=== PATIENT | female | born 1955 | race African-American/Black ===

== ENCOUNTER 2016-06-04 11:03 | Emergency (ER) | payer MEDICARE, MEDICAID ==
--- NOTE | 2016-06-04 11:20 | ER Document Report ---
ED Medical Screen (RME) - General Stated Complaint: FEVER, CHEST PAIN Notes: Fever chills chest pain coughing up blood for two days TRAVEL OUTSIDE OF THE [place] IN LAST 30 DAYS: No - Related Data Allergies/Adverse Reactions: aspirin [Aspirin] Adverse Reaction (Intermediate, Verified 03/28/15 11:20) N&V Past Medical History - Past Medical History Cardiac Medical History: Reports: Hx Hypertension Denies: Hx Coronary Artery Disease, Hx Heart Attack Pulmonary Medical History: Reports: Hx Bronchitis, Hx Pneumonia - 2005 Denies: Hx Asthma, Hx COPD Neurological Medical History: Denies: Hx Cerebrovascular Accident, Hx Seizures Musculoskeltal Medical History: Reports Hx Arthritis - Joints Psychiatric Medical History: Reports: Hx Depression Past Surgical History: Reports: Hx Abdominal Surgery - gastric bypass 3 years ago, Hx Cardiac Catheterization - ablation, Hx Orthopedic Surgery - left knee/ shoulder. Denies: Hx Pacemaker - Immunizations Hx Diphtheria, Pertussis, Tetanus Vaccination: Yes Physical Exam - Vital signs Vitals: Temp Pulse Resp BP Pulse Ox 98.0 F 97 18 110/61 100 06/04/16 11:17 06/04/16 11:17 06/04/16 11:17 06/04/16 11:17 06/04/16 11:17 Course - Vital Signs Vital signs: Temp Pulse Resp BP Pulse Ox 98.0 F 97 18 110/61 100 06/04/16 11:17 06/04/16 11:17 06/04/16 11:17 06/04/16 11:17 06/04/16 11:17
[2016-06-04] MEDS ORDERED: IPRATROPIUM/ALBUTEROL 0.5-2.5 MG/3 ML AMPUL NEB ONE (12:30)
[2016-06-04] MEDS ORDERED: METHYLPREDNISOLONE INJ 125 MG/2 ML SDV IV ONE (12:34)
--- NOTE | 2016-06-04 12:35 | ER Document Report ---
ED Respiratory Problem - General Chief Complaint: Cough Stated Complaint: FEVER, CHEST PAIN Mode of Arrival: Ambulatory Information source: Patient Notes: Patient presents complaining of cough, fever and chills for the past 2 days. Patient states fever was 102 yesterday. Patient does complain of chest pain with coughing. Patient denies any recent travel or immobilization. Patient reports blood in her sputum. Patient does state that she was recently treated for upper respiratory symptoms by her primary doctor with azithromycin on 2016. TRAVEL OUTSIDE OF THE [place] IN LAST 30 DAYS: No - HPI Patient complains to provider of: COPD, Cough Onset: Other - 2 days Duration: Worse/persistent Quality of pain: Sharp Pain Level: 4 Context: Hx COPD, Smoker. denies: Recent immobilization, Recent surgery Chest pain/discomfort: Pain Cough: Productive Sputum amount: Small Sputum color: Red Specks At home treatment: Bronchodilators Associated symptoms: Bloody cough, Chest pain/discomfort, Cough, Fever. denies : Headache Similar symptoms previously: Yes Recently seen / treated by doctor: Yes - Related Data Allergies/Adverse Reactions: aspirin [Aspirin] Adverse Reaction (Intermediate, Verified 03/28/15 11:20) N&V Past Medical History - General Information source: Patient - Social History Smoking Status: Never Smoker Chew tobacco use (# tins/day): No Frequency of alcohol use: None Drug Abuse: None Occupation: none Lives with: Family Family History: Reviewed & Not Pertinent Patient has suicidal ideation: No Patient has homicidal ideation: No - Past Medical History Cardiac Medical History: Reports: Hx Hypertension Denies: Hx Coronary Artery Disease, Hx Heart Attack Pulmonary Medical History: Reports: Hx Bronchitis, Hx COPD, Hx Pneumonia - 2005 Denies: Hx Asthma Neurological Medical History: Denies: Hx Cerebrovascular Accident, Hx Seizures Renal/ Medical History: Denies: Hx Peritoneal Dialysis Musculoskeltal Medical History: Reports Hx Arthritis - Joints Psychiatric Medical History: Reports: Hx Depression Past Surgical History: Reports: Hx Abdominal Surgery - gastric bypass 3 years ago, Hx Cardiac Catheterization - ablation, Hx Orthopedic Surgery - left knee/ shoulder. Denies: Hx Pacemaker - Immunizations Hx Diphtheria, Pertussis, Tetanus Vaccination: Yes Hx Pneumococcal Vaccination: 12/25/12 Review of Systems - Review of Systems Constitutional: Fever, Recent illness - Upper respiratory EENT: Throat pain Cardiovascular: Chest pain - Coughing Respiratory: Cough, Hemoptysis, Sputum Gastrointestinal: Abdominal pain - With coughing. denies: Vomiting Genitourinary: No symptoms reported. denies: Dysuria Female Genitourinary: No symptoms reported Musculoskeletal: Back pain - Right back pain with cough Skin: No symptoms reported Hematologic/Lymphatic: No symptoms reported Neurological/Psychological: No symptoms reported Physical Exam - Vital signs Vitals: Temp Pulse Resp BP Pulse Ox 98.0 F 97 18 110/61 100 06/04/16 11:17 06/04/16 11:17 06/04/16 11:17 06/04/16 11:17 06/04/16 11:17 - General General appearance: Appears well, Alert In distress: None - HEENT Head: Normocephalic, Atraumatic Eyes: Normal Nasal: Normal Mouth/Lips: Normal Mucous membranes: Normal Pharynx: Normal. No: Exudate, Peritonsillar abscess, Tonsillar hypertrophy Neck: Normal, Supple. No: Lymphadenopathy, Meningismus - Respiratory Respiratory status: No respiratory distress Chest status: Pain with cough, Pain with deep breathing Breath sounds: Productive cough, Rhonchi, Wheezing - faint wheeze RLL Chest palpation: Normal - Cardiovascular Rhythm: Regular Heart sounds: S1 appreciated, S2 appreciated Murmur: No - Abdominal Inspection: Obese Distension: No distension Bowel sounds: Normal Tenderness: Tender - RUQ with cough - Back Back: Tender - Right posterior thoracic back pain with coughing - Extremities General upper extremity: Normal inspection, Normal strength General lower extremity: Normal inspection, Normal strength - Neurological Neuro grossly intact: Yes Cognition: Normal Dawna Coma Scale Eye Opening: Spontaneous [place] Coma Scale Verbal: Oriented Dawna Coma Scale Motor: Obeys Commands Dawna Coma Scale Total: 15 - Psychological Associated symptoms: Normal affect, Normal mood - Skin Skin Temperature: Warm Skin Moisture: Dry Skin Color: Normal Course - Vital Signs Vital signs: Temp Pulse Resp BP Pulse Ox 99.5 F 97 25 H 125/73 99 06/04/16 16:10 06/04/16 11:17 06/04/16 16:01 06/04/16 16:01 06/04/16 16:01 - Laboratory Result Diagrams: 06/04/16 13:40 06/04/16 13:40 Laboratory results interpreted by me: 06/04/16 06/04/16 06/04/16 13:22 13:40 13:40 WBC 14.6 H RBC 3.52 L Hgb 11.0 L Hct 34.0 L Absolute Neutrophils 10.6 H BUN 23 H Urine Urobilinogen 2.0 H Urine Ascorbic Acid 40 H Labs- Entire Visit 06/04/16 06/04/16 06/04/16 13:22 13:40 13:40 WBC 14.6 H RBC 3.52 L Hgb 11.0 L Hct 34.0 L MCV 97 MCH 31.4 MCHC 32.5 RDW 13.4 Plt Count 186 Seg Neutrophils % 72.7 Lymphocytes % 21.1 Monocytes % 5.3 Eosinophils % 0.7 Basophils % 0.2 Absolute Neutrophils 10.6 H Absolute Lymphocytes 3.1 Absolute Monocytes 0.8 Absolute Eosinophils 0.1 Absolute Basophils 0.0 Sodium 141.4 Potassium 3.6 Chloride 107 Carbon Dioxide 24 Anion Gap 10 BUN 23 H Creatinine 0.95 Est GFR ( Amer) > 60 Est GFR (Non-Af Amer) > 60 Glucose 88 Calcium 9.0 Magnesium 2.0 Total Bilirubin 0.6 Direct Bilirubin 0.0 AST 24 ALT 29 Alkaline Phosphatase 71 Creatine Kinase 48 CK-MB (CK-2) Troponin I Total Protein 6.5 Albumin 3.5 Lipase 31.4 Urine Color YELLOW Urine Appearance CLEAR Urine pH 5.0 Ur Specific [place] 1.016 Urine Protein NEGATIVE Urine Glucose (UA) NEGATIVE Urine Ketones NEGATIVE Urine Blood NEGATIVE Urine Nitrite NEGATIVE Urine Bilirubin NEGATIVE Urine Urobilinogen 2.0 H Ur Leukocyte Esterase NEGATIVE Urine WBC (Auto) 2 Urine RBC (Auto) 2 Squamous Epi Cells Auto 1 Urine Ascorbic Acid 40 H 06/04/16 13:40 WBC RBC Hgb Hct MCV MCH MCHC RDW Plt Count Seg Neutrophils % Lymphocytes % Monocytes % Eosinophils % Basophils % Absolute Neutrophils Absolute Lymphocytes Absolute Monocytes Absolute Eosinophils Absolute Basophils Sodium Potassium Chloride Carbon Dioxide Anion Gap BUN Creatinine Est GFR ( Amer) Est GFR (Non-Af Amer) Glucose Calcium Magnesium Total Bilirubin Direct Bilirubin AST ALT Alkaline Phosphatase Creatine Kinase CK-MB (CK-2) < 0.22 Troponin I < 0.012 Total Protein Albumin Lipase Urine Color Urine Appearance Urine pH Ur Specific [place] Urine Protein Urine Glucose (UA) Urine Ketones Urine Blood Urine Nitrite Urine Bilirubin Urine Urobilinogen Ur Leukocyte Esterase Urine WBC (Auto) Urine RBC (Auto) Squamous Epi Cells Auto Urine Ascorbic Acid - Diagnostic Test Radiology reviewed: Image reviewed, Reports reviewed Discharge - Discharge Clinical Impression: Pneumonia Qualifiers: Pneumonia type: due to unspecified organism Laterality: left Lung location: lower lobe of lung Qualified Code(s): J18.1 - Lobar pneumonia, unspecified organism Condition: Stable Disposition: HOME, SELF-CARE Instructions: Stop Smoking ([facility]) Additional Instructions: Return immediately for any new or worsening symptoms, continued fever, worsening cough, shortness of breath, or any new symptoms Followup with your primary care provider on Monday morning for recheck PNEUMONIA: Your examination indicates that you have pneumonia. This is an infection of the lung tissue, usually caused by bacteria or a virus. Symptoms include cough, fever, shaking chills, chest pain, shortness of breath, and coughing up bloody sputum. Treatment for bacterial pneumonia includes rest, antibiotics for 10 to 14 days, increasing your clear liquid intake, a cool mist humidifier at your bedside, and fever medication. Often, a repeat chest X-ray is performed in a few weeks--even if you feel better--to ascertain whether the infection has completely resolved and no underlying lung problem is present. You should call the physician if you develop persistent vomiting, high fever that does not respond to fever medication, increasing shortness of breath , confusion, or lethargy. Also, failure to improve within two to three days is an indication for re-examination. ANTIBIOTIC THERAPY: You have been given an antibiotic prescription. It's important that you take all the medication, unless instructed otherwise by your physician. Failure to complete the entire course can result in relapse of your condition. Common side effects of antibiotics include nausea, intestinal cramping, or diarrhea. Women may develop vaginal yeast infections, and babies can get yeast (thrush) in the mouth following the use of antibiotics. Contact your physician if you develop significant side effects from this medication. Allergy to this antibiotic can result in hives, wheezing, faintness, or itching. If symptoms of allergy occur, stop the medication and call the doctor. LEVOFLOXACIN: You have been given an antibacterial agent, levofloxacin (Levaquin). This medicine is not related to the penicillins, sulfas, cephalosporins, or tetracyclines. It is often given to patients who are allergic to these drugs. It has been chosen for you either because other drugs are not appropriate, or because of the nature of your problem. Levaquin should not be taken with antacids, as these can decrease its effectiveness. It can be taken without regard to meals. LEVAQUIN SHOULD NOT BE TAKEN BY CHILDREN, NURSING WOMEN, OR WOMEN. Although Levaquin is usually well-tolerated, common side effects can include nausea and diarrhea. Contact your doctor if you experience any unusual symptoms while on this medication, such as joint pain or swelling, shortness of breath, wheezing, faintness, or hives. USE OF ACETAMINOPHEN (Tylenol): Acetaminophen may be taken for pain relief or fever control. It's much safer than aspirin, offering a wider range of "safe" dosages. It is safe during . Some brand names are Tylenol, Panadol, Datril, Anacin 3, Tempra, and Liquiprin. Acetaminophen can be repeated every four hours. The following are maximum recommended dosages: WEIGHT Dose Drops Elixir Chewable( 80mg) (LBS.) drprs=droppers tsp=teaspoon >89 pounds or adults 650 mg to 900 mg Acetaminophen can be repeated every four hours. Maximum dose not to exceed 4000 mg a day. These maximum recommended dosages are slightly higher than the dosages written on the product container, but these dosages are very safe and below the toxic dosage for acetaminophen. FOLLOW-UP CARE: If you have been referred to a physician for follow-up care, call the physician s office for an appointment as you were instructed or within the next two days. If you experience worsening or a significant change in your symptoms, notify the physician immediately or return to the Emergency Department at any time for re-evaluation. Prescriptions: Ipratropium/Albuterol Sulfate [Combivent Respimat Inhal [place]] 1 inh IH Q6 PRN # 1 aer.w.adap PRN Reason: Levofloxacin [Levaquin 750 mg Tablet] 750 mg PO DAILY #5 tablet Referrals: DIEGO DASH MD [Primary Care Provider] - 06/06/16
[2016-06-04 13:43] LABS: APPEARANCE,URINE CLEAR; BILIRUBIN,URINE NEGATIVE (NEGATIVE); GLUCOSE, URINE NEGATIVE (NEGATIVE); KETONES,URINE NEGATIVE (NEGATIVE); LEUKOCYTE ESTERASE,URINE NEGATIVE (NEGATIVE); NITRITE,URINE NEGATIVE (NEGATIVE); PROTEIN,URINE NEGATIVE (NEGATIVE); URINE SPECIFIC GRAVITY 1.016
[2016-06-04 14:19] LABS: ABSOLUTE EOSINOPHILS # (AUTO) 0.1 10^3/uL (0.0-0.6); ABSOLUTE LYMPHOCYTES (AUTO) 3.1 10^3/uL (0.5-4.7); ABSOLUTE MONOCYTES (AUTO) 0.8 10^3/uL (0.1-1.4); ABSOLUTE NEUT (AUTO) 10.6 10^3/uL (1.7-8.2); BASOPHILS % (AUTO) 0.2 % (0-2); EOSINOPHILS % (AUTO) 0.7 % (0-6); LYMPHOCYTES % (AUTO) 21.1 % (13-45); MEAN CORPUSCULAR HEMOGLOBIN 31.4 pg (27.0-33.4); MEAN CORPUSCULAR HGB CONC 32.5 g/dL (32.0-36.0); MEAN CORPUSCULAR VOLUME 97 fl (80-97); MONOCYTES % (AUTO) 5.3 % (3-13); RED BLOOD COUNT 3.52 10^6/uL (3.72-5.28); RED CELL DISTRIBUTION WIDTH 13.4 % (11.5-14.0); SEGMENTED NEUTROPHILS % (AUTO) 72.7 % (42-78); WHITE BLOOD COUNT 14.6 10^3/uL (4.0-10.5)
[2016-06-04 14:31] LABS: ALANINE AMINOTRANSFERASE 29 U/L (9-52); ALBUMIN 3.5 g/dL (3.5-5.0); ALKALINE PHOSPHATASE 71 U/L (38-126); ANION GAP 10 (5-19); ASPARTATE AMINO TRANSFERASE 24 U/L (14-36); BILIRUBIN,TOTAL 0.6 mg/dL (0.2-1.3); BLOOD UREA NITROGEN 23 mg/dL (7-20); CARBON DIOXIDE 24 mmol/L (22-30); CHLORIDE 107 mmol/L (98-107); CREATINE KINASE 48 U/L (30-135); CREATININE RESULT 0.95 mg/dL (0.52-1.25); GLUCOSE 88 mg/dL (75-110); LIPASE 31.4 U/L (23-300); POTASSIUM 3.6 mmol/L (3.6-5.0); SODIUM 141.4 mmol/L (137-145); TOTAL PROTEIN 6.5 g/dL (6.3-8.2)
[2016-06-04] MEDS ORDERED: LEVOFLOXACIN RTU 750 MG/D5W 150 ML IV ONE (14:43)
[2016-06-04 14:50] LABS: CREATINE KINASE MB < 0.22 ng/mL (<4.55); TROPONIN I < 0.012 ng/mL
[2016-06-04] MEDS ORDERED: LEVOFLOXACIN 750 MG TABLET PO ONE (15:30)
[2016-06-04 16:10] VITALS: BP 125/73
[2016-06-04] MEDS ORDERED: ACETAMINOPHEN 325 MG TABLET PO ONE (16:13)
--- NOTE | 2016-06-05 10:05 | EKG REPORT ---
SEVERITY:- NORMAL ECG - SINUS RHYTHM : Confirmed by: Dafne Guillen MD 05-Jun-2016 10:04:51
== END 2016-06-04 16:20 | disposition home or self-care (01) ==
LOC: ER 11:03
DX: J18.1 Lobar pneumonia, unspecified organism (principal); R50.9 Fever, unspecified; R07.9 Chest pain, unspecified; I10 Essential (primary) hypertension; Z98.84 Bariatric surgery status; Z88.6 Allergy status to analgesic agent
CPT/HCPCS: 93005; 94640; 99284; 96374; 36415; 87040; 87070; 87086; 87205; 82553; 82550; 83690; 83735; 85025; 80053; 81001; 84484; 71020; 93010; A9270 ×3; J2930; J7620

== ENCOUNTER → 2016-06-08 | Outpatient (CLI) | payer MEDICARE, MEDICAID | LOC: OD 15:11 | PROVIDERS: ATTEND Internal Medicine | DX: J18.9 Pneumonia, unspecified organism (principal) | CPT/HCPCS: 71020 ==

== ENCOUNTER 2016-06-17 14:28 | Observation (INO) | payer MEDICARE, MEDICAID ==
[2016-06-17 15:41] LABS: HEMATOCRIT 33.3 % (36.0-47.0); HEMOGLOBIN 11.2 g/dL (12.0-15.5); HGB HCT DIFFERENCE 0.3; MEAN CORPUSCULAR HEMOGLOBIN 31.8 pg (27.0-33.4); MEAN CORPUSCULAR HGB CONC 33.7 g/dL (32.0-36.0); MEAN CORPUSCULAR VOLUME 94 fl (80-97); RED BLOOD COUNT 3.53 10^6/uL (3.72-5.28); RED CELL DISTRIBUTION WIDTH 13.4 % (11.5-14.0); WHITE BLOOD COUNT 5.1 10^3/uL (4.0-10.5)
[2016-06-17] MEDS ORDERED: LEVOFLOXACIN 750 MG/D5W RTU 750 MG/150 ML RTUPB IV ONE (16:00)
[2016-06-17] MEDS ORDERED: CEFTRIAXONE 1 GM/D5W RTU 1 GM/50 ML RTUPB IV ONE (16:00)
[2016-06-17 16:09] LABS: ALANINE AMINOTRANSFERASE 28 U/L (9-52); ALBUMIN 3.5 g/dL (3.5-5.0); ALKALINE PHOSPHATASE 75 U/L (38-126); ANION GAP 10 (5-19); ASPARTATE AMINO TRANSFERASE 21 U/L (14-36); BILIRUBIN,TOTAL 0.6 mg/dL (0.2-1.3); BLOOD UREA NITROGEN 14 mg/dL (7-20); CALCIUM 9.2 mg/dL (8.4-10.2); CARBON DIOXIDE 25 mmol/L (22-30); CHLORIDE 112 mmol/L (98-107); CREATININE RESULT 0.82 mg/dL (0.52-1.25); GLUCOSE 112 mg/dL (75-110); POTASSIUM 3.2 mmol/L (3.6-5.0); SODIUM 147.2 mmol/L (137-145); TOTAL PROTEIN 6.9 g/dL (6.3-8.2)
[2016-06-17] MEDS ORDERED: INFLUENZA ADLT QUAD (36MOS+) 2016-17 VAC 0.5 ML SYR IM PRN (16:54)
[2016-06-17] MEDS ORDERED: POTASSIUM CHLORIDE 10 MEQ TABLET.SA PO ONE (18:07)
--- NOTE | 2016-06-17 19:59 | EKG REPORT ---
SEVERITY:- OTHERWISE NORMAL ECG - SINUS TACHYCARDIA : Confirmed by: Dafne Guillen MD 17-Jun-2016 19:58:25
--- NOTE | 2016-06-17 20:42 | PDOC H&P ---
History of Present Illness Admission Date/PCP: 06/17/16 14:28 DIEGO DASH, History of Present Illness: GIULIANO HERMOSILLO is a 60 year old female, she came to the office today with complaint of respiratory symptoms, cough, shortness of breath, wheezing. She has been sick for the last 3-4 weeks and she was treated outpatient with antibiotic, bronchodilators, despite all these, she continues to have symptoms, coughing, shortness of breath. She came to the office today requesting for hospital admission because she is not getting any better At home. CT chest without contrast was done it showed minimal dependent subsegmental atelectasis and also scarring. There is minimal patchy airspace disease with seen the left upper lobe compatible with resolving pneumonia. There is no new airspace disease, pneumothorax or there is stable calcified granuloma within the left lower lobe Past Medical History Cardiac Medical History: Reports: Hypertension Pulmonary Medical History: Reports: Bronchitis, Chronic Obstructive Pulmonary Disease (COPD), Pneumonia - 2005 Neurological Medical History: Denies: Seizures Musculoskeltal Medical History: Reports: Arthritis - Joints Psychiatric Medical History: Reports: Depression Hematology: Reports: Anemia - As young adult Past Surgical History Past Surgical History: Reports: Cardiac Catheterization - ablation, Orthopedic Surgery - left knee/shoulder Social History Smoking Status: Former Smoker Frequency of Alcohol Use: Rare Hx Recreational Drug Use: No Family History Family History: Reviewed & Not Pertinent Parental Family History Reviewed: Yes Children Family History Reviewed: Yes Sibling(s) Family History Reviewed.: Yes Medication/Allergy Home Medications: Albuterol Sulfate [Proair HFA] 2 puff IH Q4HP PRN 06/17/16 Alprazolam 1 mg PO Q12 06/17/16 Citalopram Hydrobromide [Celexa 40 mg Tablet] 40 mg PO DAILY 06/17/16 Cyanocobalamin (Vitamin B-12) [Vitamin B-12 Inj 1000 Mcg/1 ml Vial] 1,000 mcg IM .MONTHLY 06/17/16 Esomeprazole Magnesium [Nexium] 40 mg PO DAILY 06/17/16 Fluticasone/Salmeterol [Advair 250-50 Diskus 14 Dose/Diskus] 1 inh IH Q12 Furosemide [Lasix 40 mg Tablet] 40 mg PO QAM 06/17/16 Ipratropium/Albuterol Sulfate [Combivent Respimat 4 gm Mdi] 1 puff IH QID Levalbuterol HCl [Xopenex Neb 0.63 mg/3 ml Ampul] 0.63 mg NEB [id number] PRN Levofloxacin [Levaquin 750 mg Tablet] 750 mg PO DAILY 06/17/16 Lisdexamfetamine Dimesylate [Vyvanse] 40 mg PO Q12 06/17/16 Metoprolol Succinate [Toprol XL 100 mg Tablet] 100 mg PO DAILY 06/17/16 Oxycodone HCl [Oxycodone HCl ER] 15 mg PO Q6 06/17/16 Piroxicam [Feldene] 20 mg PO DAILY 06/17/16 Valsartan/Hydrochlorothiazide [Valsartan-Hctz 320-25 mg Tab] 1 each PO DAILY Allergies/Adverse Reactions: aspirin [Aspirin] Adverse Reaction (Intermediate, Verified 03/28/15 11:20) N&V Review of Systems Constitutional: PRESENT: chills, headache(s), night sweats Eyes: ABSENT: as per HPI, visual disturbances, other Ears: ABSENT: as per HPI, hearing changes, other Nose, Mouth, and Throat: ABSENT: as per HPI, headache(s), mouth pain, sore throat, vertigo, other Breasts: ABSENT: as per HPI, other Cardiovascular: PRESENT: chest pain Respiratory: PRESENT: cough, dyspnea, sputum Gastrointestinal: ABSENT: as per HPI, abdominal pain, bloating, coffee ground emesis, constipation, diarrhea, dysphagia, heartburn, hematemesis, hematochezia , melena, nausea, vomiting, other Genitourinary: ABSENT: as per HPI, difficulty urinating, dysuria, hematuria, nocturia, other Integumentary: ABSENT: as per HPI, diaphoresis, erythema, lesions, pruritus, rash, wounds, other Neurological: ABSENT: as per HPI, abnormal gait, abnormal movements, abnormal speech, confusion, convulsions, dizziness, focal weakness, frequent falls, lack of coordination, memory loss, numbness, paresthesias, restless legs, syncope, tingling, tremor(s), vertigo, weakness, other Psychiatric: ABSENT: as per HPI, anxiety, depression, hallucinations, homidical ideation, suicidal ideation, other Endocrine: ABSENT: as per HPI, cold intolerance, flushing, heat intolerance, menstrual abnormalities, polydipsia, polyphagia, polyuria, other Physical Exam Vital Signs: Temp Pulse Resp BP Pulse Ox 98.4 F 102 H 17 135/84 H 99 06/17/16 19:24 06/17/16 19:24 06/17/16 19:24 06/17/16 19:24 06/17/16 19:24 Intake & Output 06/16/16 06/17/16 06/18/16 06:59 06:59 06:59 Weight 114.1 kg General appearance: PRESENT: no acute distress, well-developed, well-nourished Head exam: PRESENT: atraumatic, normocephalic Eye exam: PRESENT: conjunctiva pink, EOMI, PERRLA Ear exam: PRESENT: normal external ear exam Mouth exam: PRESENT: moist, tongue midline Neck exam: PRESENT: full ROM Respiratory exam: PRESENT: rhonchi, wheezes Cardiovascular exam: PRESENT: RRR, +S1, +S2 GI/Abdominal exam: PRESENT: normal bowel sounds, soft Rectal exam: PRESENT: deferred Neurological exam: PRESENT: alert, awake, oriented to person, oriented to place , oriented to time, oriented to situation, CN II-XII grossly intact. ABSENT: motor sensory deficit Psychiatric exam: PRESENT: appropriate affect, normal mood Skin exam: PRESENT: dry, intact, warm. ABSENT: cyanosis, rash Results Laboratory Results: 06/17/16 15:30 06/17/16 15:30 06/17/16 06/17/16 15:30 15:30 WBC 5.1 RBC 3.53 L Hgb 11.2 L Hct 33.3 L MCV 94 MCH 31.8 MCHC 33.7 RDW 13.4 Plt Count 239 Sodium 147.2 H Potassium 3.2 L Chloride 112 H Carbon Dioxide 25 Anion Gap 10 BUN 14 Creatinine 0.82 Est GFR ( Amer) > 60 Est GFR (Non-Af Amer) > 60 Glucose 112 H Calcium 9.2 Total Bilirubin 0.6 AST 21 ALT 28 Alkaline Phosphatase 75 Total Protein 6.9 Albumin 3.5 Impressions: Chest CT 06/17/16 00:00 IMPRESSION: SUBTLE PATCHY LEFT UPPER LOBE AIRSPACE DISEASE COMPATIBLE WITH RESOLVING PNEUMONIA SEEN ON PRIOR CHEST RADIOGRAPH. NO ADDITIONAL ACUTE OR SIGNIFICANT CHANGE COMPARED TO PRIOR CT FROM 08/13/2014. Assessment & Plan - Diagnosis (1) Left upper lobe pneumonia Qualifiers: Pneumonia type: due to unspecified organism Qualified Code(s): J18.1 - Lobar pneumonia, unspecified organism Is this a current diagnosis for this admission?: YesPlan: Patient is admitted into the hospital because of failed outpatient treatment, she will be treated with IV antibiotic.
[2016-06-17] MEDS ORDERED: ENOXAPARIN SODIUM INJ 40 MG/0.4 ML DISP.SYRIN SUBCUT ONE (21:00)
[2016-06-17] MEDS ORDERED: ALBUTEROL SULFATE HFA (90 MCG/PUFF) 8 GM MDI (1 MDI/ER DISP) IH PRN (21:23)
[2016-06-17] MEDS ORDERED: (PENDING PHARMACY ID) (Valsartan/Hydrochlorothiazide [Valsartan-Hctz 320-25 Mg Tab] 1 EACH PO SCH (21:30)
[2016-06-17] MEDS ORDERED: (PENDING PHARMACY ID) (Citalopram Hydrobromide [Celexa 40 Mg Tablet] 40 MG) PO SCH (21:30)
[2016-06-17] MEDS ORDERED: CYANOCOBALAMIN (VITAMIN B-12) INJ 1000 MCG/1 ML VIAL IM SCH (21:30)
[2016-06-17] MEDS ORDERED: (PENDING PHARMACY ID) (Oxycodone Hcl [Oxycodone Hcl Er] 15 MG) PO SCH (21:30)
[2016-06-17 21:39] LABS: APPEARANCE,URINE CLEAR; GLUCOSE, URINE NEGATIVE (NEGATIVE)
[2016-06-17 21:40] LABS: BILIRUBIN,URINE NEGATIVE (NEGATIVE); KETONES,URINE NEGATIVE (NEGATIVE); PROTEIN,URINE NEGATIVE (NEGATIVE); URINE SPECIFIC GRAVITY 1.013; UROBILINOGEN,URINE NEGATIVE mg/dL (<2.0)
[2016-06-17 21:41] LABS: LEUKOCYTE ESTERASE,URINE NEGATIVE (NEGATIVE); NITRITE,URINE NEGATIVE (NEGATIVE)
[2016-06-17 21:46] LABS: HEMATOCRIT 30.2 % (36.0-47.0); HEMOGLOBIN 10.2 g/dL (12.0-15.5); HGB HCT DIFFERENCE 0.4; MEAN CORPUSCULAR HEMOGLOBIN 31.9 pg (27.0-33.4); MEAN CORPUSCULAR HGB CONC 33.9 g/dL (32.0-36.0); MEAN CORPUSCULAR VOLUME 94 fl (80-97); RED BLOOD COUNT 3.21 10^6/uL (3.72-5.28); RED CELL DISTRIBUTION WIDTH 13.6 % (11.5-14.0); WHITE BLOOD COUNT 5.6 10^3/uL (4.0-10.5)
[2016-06-17 21:58] LABS: CREATININE RESULT 0.87 mg/dL (0.52-1.25)
[2016-06-17] MEDS ORDERED: OXYCODONE HCL SR 10 MG TABLET PO PRN (21:58)
[2016-06-17 21:59] LABS: PROTHROMBIN TIME 13.4 SEC (11.4-15.4)
[2016-06-17 22:00] LABS: PARTIAL THROMBOPLASTIN TIME 29.3 SEC (23.5-35.8)
[2016-06-17] MEDS: CEFTRIAXONE 1 GM/D5W RTU 1 GM/50 ML RTUPB IV SCH (22:00)
[2016-06-17] MEDS ORDERED: (PENDING PHARMACY ID) (Alprazolam [Alprazolam] 1 MG) PO SCH (22:00)
[2016-06-17] MEDS: ALPRAZOLAM 0.5 MG TABLET PO SCH (22:12)
[2016-06-17] MEDS ORDERED: HYDROCHLOROTHIAZIDE 25 MG TABLET PO ONE (23:00)
[2016-06-17] MEDS ORDERED: CITALOPRAM HYDROBROMIDE 20 MG TABLET PO ONE (23:00)
[2016-06-17] MEDS ORDERED: LANSOPRAZOLE 30 MG TAB.RAP.DR PO ONE (23:00)
[2016-06-17] MEDS ORDERED: VALSARTAN 160 MG TABLET PO ONE (23:00)
[2016-06-17] MEDS: FLUTICASONE/SALMETEROL DISKUS 250-50 MCG/DOSE IH SCH (23:48)
[2016-06-17] MEDS: IPRATROPIUM/ALBUTEROL 120 PUFF/4 GM MDI IH SCH (23:49)
[2016-06-17] MEDS: LEVOFLOXACIN 750 MG/D5W RTU 750 MG/150 ML RTUPB IV SCH (23:50)
[2016-06-18] MEDS: LEVALBUTEROL HCL NEB 0.63 MG/3 ML AMPUL NEB PRN ×2 (00:34→12:57)
[2016-06-18] MEDS: ENOXAPARIN SODIUM INJ 40 MG/0.4 ML DISP.SYRIN SUBCUT SCH (08:05)
[2016-06-18] MEDS: FLUTICASONE/SALMETEROL DISKUS 250-50 MCG/DOSE IH SCH ×2 (09:12→21:20)
[2016-06-18] MEDS: IPRATROPIUM/ALBUTEROL 120 PUFF/4 GM MDI IH SCH ×4 (09:12→21:20)
[2016-06-18] MEDS: LANSOPRAZOLE 30 MG TAB.RAP.DR PO SCH (09:21)
[2016-06-18] MEDS: HYDROCHLOROTHIAZIDE 25 MG TABLET PO SCH (09:23)
[2016-06-18] MEDS: ALPRAZOLAM 0.5 MG TABLET PO SCH (09:24)
[2016-06-18] MEDS: VALSARTAN 160 MG TABLET PO SCH (09:24)
[2016-06-18] MEDS ORDERED: CITALOPRAM HYDROBROMIDE 20 MG TABLET PO SCH (10:00)
--- NOTE | 2016-06-18 10:11 | PDOC PROGRESS REPORT ---
Subjective Progress Note for:: 06/18/16 Subjective:: Patient is doing very well patient's denied any chest pain no shortness of the breath still complained of persistent complaint of cough. Patient was admitted because of the failure out patient's pneumonia therapy Physical Exam Vital Signs: Temp Pulse Resp BP Pulse Ox 98.2 F 74 15 113/65 100 06/18/16 03:04 06/18/16 07:00 06/18/16 03:04 06/18/16 03:04 06/18/16 03:04 Intake & Output 06/17/16 06/18/16 06/19/16 06:59 06:59 06:59 Intake Total 630 Output Total 375 Balance 255 Weight 114.1 kg General appearance: PRESENT: no acute distress, well-developed, well-nourished Head exam: PRESENT: atraumatic, normocephalic Eye exam: PRESENT: conjunctiva pink, EOMI, PERRLA. ABSENT: scleral icterus Ear exam: PRESENT: normal external ear exam Mouth exam: PRESENT: moist, tongue midline Neck exam: PRESENT: full ROM. ABSENT: carotid bruit, JVD, lymphadenopathy, thyromegaly Cardiovascular exam: PRESENT: RRR. ABSENT: diastolic murmur, rubs, systolic murmur Pulses: PRESENT: normal dorsalis pedis pul, +2 pedal pulses bilateral Vascular exam: PRESENT: normal capillary refill GI/Abdominal exam: PRESENT: normal bowel sounds, soft. ABSENT: distended, guarding, mass, organolmegaly, rebound, tenderness Rectal exam: PRESENT: deferred Neurological exam: PRESENT: alert, awake, oriented to person, oriented to place , oriented to time, oriented to situation, CN II-XII grossly intact. ABSENT: motor sensory deficit Psychiatric exam: PRESENT: appropriate affect, normal mood. ABSENT: homicidal ideation, suicidal ideation Skin exam: PRESENT: dry, intact, warm. ABSENT: cyanosis, rash Results Laboratory Results: 06/17/16 21:40 06/17/16 21:40 06/17/16 06/17/16 06/17/16 15:30 15:30 20:40 WBC 5.1 RBC 3.53 L Hgb 11.2 L Hct 33.3 L MCV 94 MCH 31.8 MCHC 33.7 RDW 13.4 Plt Count 239 Sodium 147.2 H Potassium 3.2 L Chloride 112 H Carbon Dioxide 25 Anion Gap 10 BUN 14 Creatinine 0.82 Est GFR ( Amer) > 60 Est GFR (Non-Af Amer) > 60 Glucose 112 H Calcium 9.2 Total Bilirubin 0.6 AST 21 ALT 28 Alkaline Phosphatase 75 Total Protein 6.9 Albumin 3.5 Urine Color YELLOW Urine Appearance CLEAR Urine pH 7.0 Ur Specific [place] 1.013 Urine Protein NEGATIVE Urine Glucose (UA) NEGATIVE Urine Ketones NEGATIVE Urine Blood NEGATIVE Urine Nitrite NEGATIVE Ur Leukocyte Esterase NEGATIVE Urine WBC (Auto) 0 Urine RBC (Auto) 1 06/17/16 06/17/16 21:40 21:40 WBC 5.6 RBC 3.21 L Hgb 10.2 L Hct 30.2 L MCV 94 MCH 31.9 MCHC 33.9 RDW 13.6 Plt Count 214 Sodium Potassium Chloride Carbon Dioxide Anion Gap BUN Creatinine 0.87 Est GFR ( Amer) > 60 Est GFR (Non-Af Amer) > 60 Glucose Calcium Total Bilirubin AST ALT Alkaline Phosphatase Total Protein Albumin Urine Color Urine Appearance Urine pH Ur Specific [place] Urine Protein Urine Glucose (UA) Urine Ketones Urine Blood Urine Nitrite Ur Leukocyte Esterase Urine WBC (Auto) Urine RBC (Auto) Impressions: Chest CT 06/17/16 00:00 IMPRESSION: SUBTLE PATCHY LEFT UPPER LOBE AIRSPACE DISEASE COMPATIBLE WITH RESOLVING PNEUMONIA SEEN ON PRIOR CHEST RADIOGRAPH. NO ADDITIONAL ACUTE OR SIGNIFICANT CHANGE COMPARED TO PRIOR CT FROM 08/13/2014. Assessment & Plan - Diagnosis (1) Left upper lobe pneumonia Qualifiers: Pneumonia type: due to unspecified organism Qualified Code(s): J18.1 - Lobar pneumonia, unspecified organism Is this a current diagnosis for this admission?: YesPlan: the current IV antibiotic (2) Benign essential HTN Is this a current diagnosis for this admission?: YesPlan: There is some confusion about the blood pressure medication home will check with the pharmacy (3) Chronic obstructive pulmonary disease Is this a current diagnosis for this admission?: YesPlan: Stable (4) Hepatitis C Qualifiers: Viral hepatitis chronicity: unspecified Is this a current diagnosis for this admission?: YesPlan: Stable (5) Low back strain Qualifiers: Encounter type: initial encounter Qualified Code(s): S39.012A - Strain of muscle, fascia and tendon of lower back, initial encounter Is this a current diagnosis for this admission?: YesPlan: necessary pain medication - Time Time Spent with patient: 15-24 minutes Medications reviewed and adjusted accordingly: Yes Anticipated discharge: Home - Inpatient Certification Medical Necessity: Failure to Improve With Outpatient Therapy, Need for IV Antibiotics Post Hospital Care: D/C [employer] Documentation - Plan Summary Plan Summary: Continues IV antibiotic
[2016-06-18] MEDS ORDERED: AMITRIPTYLINE HCL 50 MG TABLET PO PRN (15:45)
[2016-06-18] MEDS ORDERED: CYCLOBENZAPRINE HCL 10 MG TABLET PO PRN (15:45)
[2016-06-18] MEDS ORDERED: LEVOFLOXACIN 750 MG/D5W RTU 750 MG/150 ML RTUPB IV SCH (19:00)
[2016-06-18] MEDS: GABAPENTIN 300 MG CAPSULE PO SCH (21:19)
[2016-06-18] MEDS: CEFTRIAXONE 1 GM/D5W RTU 1 GM/50 ML RTUPB IV SCH (21:19)
[2016-06-18] MEDS: TOPIRAMATE 100 MG TABLET PO SCH (21:20)
[2016-06-18] MEDS: OXYCODONE-ACETAMINOPHEN 5-325 MG TABLET PO PRN (22:25)
[2016-06-18] MEDS: LEVOFLOXACIN 750 MG/D5W RTU 750 MG/150 ML RTUPB IV SCH (22:27)
[2016-06-18] MEDS: OXYCODONE HCL IR 5 MG TABLET PO PRN (22:27)
[2016-06-19] MEDS: TOPIRAMATE 100 MG TABLET PO SCH ×2 (06:03→13:55)
[2016-06-19] MEDS: GABAPENTIN 300 MG CAPSULE PO SCH ×2 (06:04→13:55)
[2016-06-19 07:39] LABS: ABSOLUTE EOSINOPHILS # (AUTO) 0.2 10^3/uL (0.0-0.6); ABSOLUTE LYMPHOCYTES (AUTO) 2.5 10^3/uL (0.5-4.7); ABSOLUTE MONOCYTES (AUTO) 0.5 10^3/uL (0.1-1.4); ABSOLUTE NEUT (AUTO) 1.5 10^3/uL (1.7-8.2); BASOPHILS % (AUTO) 0.9 % (0-2); EOSINOPHILS % (AUTO) 4.1 % (0-6); HEMATOCRIT 32.5 % (36.0-47.0); HGB HCT DIFFERENCE 0.5; LYMPHOCYTES % (AUTO) 54.1 % (13-45); MEAN CORPUSCULAR HEMOGLOBIN 31.7 pg (27.0-33.4); MEAN CORPUSCULAR HGB CONC 33.9 g/dL (32.0-36.0); MEAN CORPUSCULAR VOLUME 93 fl (80-97); MONOCYTES % (AUTO) 9.9 % (3-13); RED BLOOD COUNT 3.48 10^6/uL (3.72-5.28); RED CELL DISTRIBUTION WIDTH 13.5 % (11.5-14.0); WHITE BLOOD COUNT 4.7 10^3/uL (4.0-10.5)
[2016-06-19] MEDS: ENOXAPARIN SODIUM INJ 40 MG/0.4 ML DISP.SYRIN SUBCUT SCH (07:51)
[2016-06-19 07:54] LABS: ANION GAP 9 (5-19); BLOOD UREA NITROGEN 16 mg/dL (7-20); CALCIUM 9.5 mg/dL (8.4-10.2); CARBON DIOXIDE 24 mmol/L (22-30); CHLORIDE 111 mmol/L (98-107); CREATININE RESULT 0.92 mg/dL (0.52-1.25); GLUCOSE 92 mg/dL (75-110); POTASSIUM 4.2 mmol/L (3.6-5.0)
[2016-06-19] MEDS: VALSARTAN 160 MG TABLET PO SCH (09:56)
[2016-06-19] MEDS: METOPROLOL SUCCINATE 50 MG TAB.SR.24H PO SCH (09:56)
[2016-06-19] MEDS: LANSOPRAZOLE 30 MG TAB.RAP.DR PO SCH (09:56)
[2016-06-19] MEDS: ALPRAZOLAM 0.5 MG TABLET PO SCH (09:56)
[2016-06-19] MEDS: FLUTICASONE/SALMETEROL DISKUS 250-50 MCG/DOSE IH SCH (09:57)
[2016-06-19] MEDS: HYDROCHLOROTHIAZIDE 25 MG TABLET PO SCH (09:57)
[2016-06-19] MEDS: IPRATROPIUM/ALBUTEROL 120 PUFF/4 GM MDI IH SCH ×3 (09:57→18:47)
[2016-06-19] MEDS ORDERED: DIAZEPAM 2 MG TABLET PO SCH (10:00)
[2016-06-19] MEDS ORDERED: ALBUTEROL SULFATE HFA (90 MCG/PUFF) 200 PUFF/8.5 GM MDI IH PRN (11:01)
[2016-06-19] MEDS: OXYCODONE-ACETAMINOPHEN 5-325 MG TABLET PO PRN (12:13)
[2016-06-19] MEDS: OXYCODONE HCL IR 5 MG TABLET PO PRN (12:14)
--- NOTE | 2016-06-19 14:03 | PDOC PROGRESS REPORT ---
Subjective Progress Note for:: 06/19/16 Subjective:: And is feeling much better denied any chest pain no shortness of the breath to have on and off cough that no other events happen overnight Physical Exam Vital Signs: Temp Pulse Resp BP Pulse Ox 97.7 F 69 20 133/79 H 99 06/19/16 12:04 06/19/16 12:04 06/19/16 12:04 06/19/16 12:04 06/19/16 12:04 Intake & Output 06/18/16 06/19/16 06/20/16 06:59 06:59 06:59 Intake Total 630 600 Output Total 375 Balance 255 600 Weight 114.1 kg General appearance: PRESENT: no acute distress, well-developed, well-nourished Head exam: PRESENT: atraumatic, normocephalic Eye exam: PRESENT: conjunctiva pink, EOMI, PERRLA. ABSENT: scleral icterus Ear exam: PRESENT: normal external ear exam Mouth exam: PRESENT: moist, tongue midline Neck exam: PRESENT: full ROM. ABSENT: carotid bruit, JVD, lymphadenopathy, thyromegaly Cardiovascular exam: PRESENT: RRR. ABSENT: diastolic murmur, rubs, systolic murmur Pulses: PRESENT: normal dorsalis pedis pul, +2 pedal pulses bilateral Vascular exam: PRESENT: normal capillary refill GI/Abdominal exam: PRESENT: normal bowel sounds, soft. ABSENT: distended, guarding, mass, organolmegaly, rebound, tenderness Rectal exam: PRESENT: deferred Neurological exam: PRESENT: alert, awake, oriented to person, oriented to place , oriented to time, oriented to situation, CN II-XII grossly intact. ABSENT: motor sensory deficit Psychiatric exam: PRESENT: appropriate affect, normal mood. ABSENT: homicidal ideation, suicidal ideation Skin exam: PRESENT: dry, intact, warm. ABSENT: cyanosis, rash Results Laboratory Results: 06/19/16 07:22 06/19/16 07:22 06/19/16 06/19/16 07:22 07:22 WBC 4.7 RBC 3.48 L Hgb 11.0 L Hct 32.5 L MCV 93 MCH 31.7 MCHC 33.9 RDW 13.5 Plt Count 254 Seg Neutrophils % 31.0 L Lymphocytes % 54.1 H Monocytes % 9.9 Eosinophils % 4.1 Basophils % 0.9 Absolute Neutrophils 1.5 L Absolute Lymphocytes 2.5 Absolute Monocytes 0.5 Absolute Eosinophils 0.2 Absolute Basophils 0.0 Sodium 144.0 Potassium 4.2 Chloride 111 H Carbon Dioxide 24 Anion Gap 9 BUN 16 Creatinine 0.92 Est GFR ( Amer) > 60 Est GFR (Non-Af Amer) > 60 Glucose 92 Calcium 9.5 06/17/16 20:40 Clean Catch Midstream Urine Culture - Final Mixed Urogenital Krissy Impressions: Chest CT 06/17/16 00:00 IMPRESSION: SUBTLE PATCHY LEFT UPPER LOBE AIRSPACE DISEASE COMPATIBLE WITH RESOLVING PNEUMONIA SEEN ON PRIOR CHEST RADIOGRAPH. NO ADDITIONAL ACUTE OR SIGNIFICANT CHANGE COMPARED TO PRIOR CT FROM 08/13/2014. Assessment & Plan - Diagnosis (1) Left upper lobe pneumonia Qualifiers: Pneumonia type: due to unspecified organism Qualified Code(s): J18.1 - Lobar pneumonia, unspecified organism Is this a current diagnosis for this admission?: YesPlan: the current IV antibiotic (2) Benign essential HTN Is this a current diagnosis for this admission?: YesPlan: There is some confusion about the blood pressure medication home will check with the pharmacy (3) Chronic obstructive pulmonary disease Is this a current diagnosis for this admission?: YesPlan: Stable (4) Hepatitis C Qualifiers: Viral hepatitis chronicity: unspecified Is this a current diagnosis for this admission?: YesPlan: Stable (5) Low back strain Qualifiers: Encounter type: initial encounter Qualified Code(s): S39.012A - Strain of muscle, fascia and tendon of lower back, initial encounter Is this a current diagnosis for this admission?: YesPlan: necessary pain medication - Time Time Spent with patient: 15-24 minutes Medications reviewed and adjusted accordingly: Yes Anticipated discharge: Home - Inpatient Certification Medical Necessity: Failure to Improve With Outpatient Therapy, Need for Nebulizer Therapy and Monitoring of Response, Need for IV Antibiotics Post Hospital Care: [employer] Billing Analyst Documentation - Plan Summary Plan Summary: Continuous IV antibiotic
[2016-06-19] MEDS: LEVALBUTEROL HCL NEB 0.63 MG/3 ML AMPUL NEB PRN (14:51)
[2016-06-20] MEDS: CEFTRIAXONE 1 GM/D5W RTU 1 GM/50 ML RTUPB IV SCH (00:06)
[2016-06-20] MEDS: TOPIRAMATE 100 MG TABLET PO SCH ×2 (00:07→05:46)
[2016-06-20] MEDS: OXYCODONE HCL IR 5 MG TABLET PO PRN (00:07)
[2016-06-20] MEDS: OXYCODONE-ACETAMINOPHEN 5-325 MG TABLET PO PRN (00:07)
[2016-06-20] MEDS: GABAPENTIN 300 MG CAPSULE PO SCH ×2 (00:08→05:46)
[2016-06-20] MEDS: FLUTICASONE/SALMETEROL DISKUS 250-50 MCG/DOSE IH SCH ×2 (00:09→09:13)
[2016-06-20] MEDS: IPRATROPIUM/ALBUTEROL 120 PUFF/4 GM MDI IH SCH ×2 (00:09→09:13)
[2016-06-20] MEDS: LEVOFLOXACIN 750 MG/D5W RTU 750 MG/150 ML RTUPB IV SCH (00:55)
[2016-06-20 05:24] LABS: ANION GAP 11 (5-19); BLOOD UREA NITROGEN 14 mg/dL (7-20); CALCIUM 9.1 mg/dL (8.4-10.2); CARBON DIOXIDE 22 mmol/L (22-30); CHLORIDE 111 mmol/L (98-107); CREATININE RESULT 0.99 mg/dL (0.52-1.25); GLUCOSE 101 mg/dL (75-110); POTASSIUM 3.6 mmol/L (3.6-5.0); SODIUM 143.5 mmol/L (137-145)
[2016-06-20] MEDS: ENOXAPARIN SODIUM INJ 40 MG/0.4 ML DISP.SYRIN SUBCUT SCH (07:51)
--- NOTE | 2016-06-20 07:54 | Physician Advisory Note ---
Physician Advisor ProgressNote .: Pursuant to the plan for [facility], I have reviewed the medical record for this patient. Physician Advisor Statement: Possible documentation opportunities if attending agrees: 1. "HALIE Pneumonia, suspect possibly gram negative given underlying COPD" [ need which lobe, & what type bacteria] 2. "obesity with BMI 43.2" 3. "Hypernatremia, now resolved, likely due to " [intravascular volume depletion?] 4. Medical necessity: need documentation for each day specifying reasons pt could not be adequately managed outside of hospital at that time. 5. Lung exam for last 2 progress notes (currently appears to be missing) 6. Reason(s) for repeating CMP labs at this time when she is reportedly improved overall & most initial lab abnormalities appear resolved. (If reasons aren't obvious/clear, auditors may say this testing was unnecessary.) As always, if concerned about any unstable VS or abnormal labs, please comment on them & note what doing about them, & please document each day the potential clinical problems you are concerned could occur if pt not kept in hospital for tx at this time. Discussion: 60yo female w/ chronic co-morbidities including HTN, COPD, obesity - presented 06/17 PM to ED w/cough/SOB/wheezing, after prolonged outpt course + tx. (+) HR 102, RR17, O2 sats excellent; CT = atelecatasis, scarring, minimal patchy airspace dz in HALIE consistent w/resolving PNA; Na 147.2, Hgb 11.2 Attending ordered IV Rocephin, IV Levaquin, prn nebs. Status: Pt came in w/pneumonia already appearing to be resolving by CT, tachycardia but no tachypnea or hypoxemia, no labored breathing, no indication of or tx for Ac Exac COPD or other dz that required Inpt care, & was appropriately made Outpt Obs status. Tachycardia that appeared to resolve overnight the first night, did return 06/18 PM. However, by 06/18, progress notes indicate clinical improvement without documentation of any reasons that ongoing tx in inpatient hospital setting = medically reasonable & necessary to protect pt's health, safety, & medical condition. No indication for change to Inpatient status based on current documentation. Thanks for your help with documentation accuracy/specificity improvement! Zuleyka Griffin MD [facility] Physician Advisor, Fellow of Hospital Medicine
[2016-06-20] MEDS: HYDROCHLOROTHIAZIDE 25 MG TABLET PO SCH (09:12)
[2016-06-20] MEDS: METOPROLOL SUCCINATE 50 MG TAB.SR.24H PO SCH (09:12)
[2016-06-20] MEDS: ALPRAZOLAM 0.5 MG TABLET PO SCH (09:12)
[2016-06-20] MEDS: VALSARTAN 160 MG TABLET PO SCH (09:12)
[2016-06-20] MEDS: LANSOPRAZOLE 30 MG TAB.RAP.DR PO SCH (09:13)
[2016-06-20 09:30] VITALS: BP 111/64
--- NOTE | 2016-06-20 12:56 | PDOC DISCHARGE SUMMARY ---
General - Admit/Disc Date/PCP Admission Date/Primary Care Provider: 06/17/16 14:28 DIEGO DASH, Discharge Date: 06/20/16 - Discharge Diagnosis (1) Left upper lobe pneumonia Is this a current diagnosis for this admission?: Yes (2) Benign essential HTN Is this a current diagnosis for this admission?: Yes (3) Chronic obstructive pulmonary disease Is this a current diagnosis for this admission?: Yes - Additional Information Discharge Diet: Regular Discharge Activity: Activity As Tolerated Home Medications: Albuterol Sulfate [Proair HFA] 2 puff IH Q4HP PRN 06/17/16 Alprazolam 1 mg PO DAILY 06/17/16 Cyanocobalamin (Vitamin B-12) [Vitamin B-12 Inj 1000 Mcg/1 ml Vial] 1,000 mcg IM .MONTHLY 06/17/16 Esomeprazole Magnesium [Nexium] 40 mg PO DAILY 06/17/16 Fluticasone/Salmeterol [Advair 250-50 Diskus 14 Dose/Diskus] 1 inh IH Q12 Ipratropium/Albuterol Sulfate [Combivent Respimat 4 gm Mdi] 1 puff IH QID Levalbuterol HCl [Xopenex Neb 0.63 mg/3 ml Ampul] 0.63 mg NEB RTQ6HP PRN Metoprolol Succinate [Toprol XL 100 mg Tablet] 100 mg PO DAILY 06/17/16 Valsartan/Hydrochlorothiazide [Valsartan-Hctz 320-25 mg Tab] 1 each PO DAILY Amitriptyline HCl [Elavil 50 mg Tablet] 50 mg PO QHS PRN 06/18/16 Cyclobenzaprine HCl 10 mg PO TIDP PRN 06/18/16 Gabapentin 300 mg PO Q8H 06/18/16 Lisdexamfetamine Dimesylate [Vyvanse] 50 mg PO DAILY 06/18/16 Oxycodone HCl/Acetaminophen [Oxycodone-Acetaminophen 10-325] 1 tab PO Q12HP PRN 06/18/16 Topiramate 100 mg PO Q8H 06/18/16 Umeclidinium [place] [Incruse Ellipta] 1 puff IH DAILY 06/18/16 History of Present Illness History of Present Illness: GIULIANO HERMOSILLO is a 60 year old female, she came to the office today with complaint of respiratory symptoms, cough, shortness of breath, wheezing. She has been sick for the last 3-4 weeks and she was treated outpatient with antibiotic, bronchodilators, despite all these, she continues to have symptoms, coughing, shortness of breath. She came to the office today requesting for hospital admission because she is not getting any better At home. CT chest without contrast was done it showed minimal dependent subsegmental atelectasis and also scarring. There is minimal patchy airspace disease with seen the left upper lobe compatible with resolving pneumonia. There is no new airspace disease, pneumothorax or there is stable calcified granuloma within the left lower lobe Hospital Course Hospital Course: Patient was admitted because of pneumonia, she was brought in for observation. She was treated with intravenous antibiotic. She was managed previously at school with p.o. antibiotic but she did not improve. Physical Exam Vital Signs: Temp Pulse Resp BP Pulse Ox 97.6 F 79 18 100/58 L 99 06/20/16 04:59 06/20/16 07:00 06/20/16 04:59 06/20/16 04:59 06/20/16 04:59 Intake & Output 06/19/16 06/20/16 06/21/16 06:59 06:59 06:59 Intake Total 600 1380 Balance 600 1380 General appearance: PRESENT: no acute distress, well-developed, well-nourished Head exam: PRESENT: atraumatic, normocephalic Eye exam: PRESENT: conjunctiva pink, EOMI, PERRLA Ear exam: PRESENT: normal external ear exam Mouth exam: PRESENT: moist, tongue midline Neck exam: PRESENT: full ROM. ABSENT: carotid bruit, JVD, lymphadenopathy, thyromegaly Cardiovascular exam: PRESENT: RRR. ABSENT: diastolic murmur, rubs, systolic murmur Vascular exam: PRESENT: normal capillary refill GI/Abdominal exam: PRESENT: normal bowel sounds, soft Rectal exam: PRESENT: deferred Neurological exam: PRESENT: alert, awake, oriented to person, oriented to place , oriented to time, oriented to situation, CN II-XII grossly intact Psychiatric exam: PRESENT: appropriate affect, normal mood Skin exam: PRESENT: dry, intact, warm Results Laboratory Results: 06/19/16 07:22 06/20/16 04:56 06/20/16 04:56 Sodium 143.5 Potassium 3.6 Chloride 111 H Carbon Dioxide 22 Anion Gap 11 BUN 14 Creatinine 0.99 Est GFR ( Amer) > 60 Est GFR (Non-Af Amer) 57 L Glucose 101 Calcium 9.1 06/17/16 20:40 Clean Catch Midstream Urine Culture - Final Mixed Urogenital Krissy Impressions: Chest CT 06/17/16 00:00 IMPRESSION: SUBTLE PATCHY LEFT UPPER LOBE AIRSPACE DISEASE COMPATIBLE WITH RESOLVING PNEUMONIA SEEN ON PRIOR CHEST RADIOGRAPH. NO ADDITIONAL ACUTE OR SIGNIFICANT CHANGE COMPARED TO PRIOR CT FROM 08/13/2014.
[2016-06-20] MEDS ORDERED: LEVOFLOXACIN 750 MG TABLET PO SCH (22:00)
== END 2016-06-20 11:33 | disposition home or self-care (01) ==
LOC: 4S 14:28 → INTOOBSV 14:28
PROVIDERS: ADMIT Internal Medicine; ATTEND Internal Medicine
DX: J18.1 Lobar pneumonia, unspecified organism (principal); J44.9 Chronic obstructive pulmonary disease, unspecified; I10 Essential (primary) hypertension; M19.90 Unspecified osteoarthritis, unspecified site; F32.9 Major depressive disorder, single episode, unspecified; Z79.899 Other long term (current) drug therapy; Z79.51 Long term (current) use of inhaled steroids; Z87.891 Personal history of nicotine dependence; Z88.6 Allergy status to analgesic agent; Z23 Encounter for immunization
CPT/HCPCS: 36415 ×3; 87040; 87086; 82565; 84133; 85025; 85027; 85610; 85730; 80076; 80048 ×3; 81001; 71250; 90686; 93005; 93010; 94640 ×3; 90471; G0378 ×4; G0379; A9270 ×27; J1650 ×4; J0696 ×3; J1956 ×3; J3490 ×3; J7614

== ENCOUNTER → 2016-06-29 | Outpatient (CLI) | payer MEDICARE, MEDICAID | LOC: RAD 11:25 | PROVIDERS: ATTEND Internal Medicine | DX: M17.9 Osteoarthritis of knee, unspecified (principal); M16.9 Osteoarthritis of hip, unspecified; M25.571 Pain in right ankle and joints of right foot ==

== ENCOUNTER → 2016-07-07 | Outpatient (CLI) | payer MEDICARE, MEDICAID | LOC: SP 15:17 | PROVIDERS: ATTEND Internal Medicine | DX: R22.41 Localized swelling, mass and lump, right lower limb (principal) | CPT/HCPCS: 93971 ==

== ENCOUNTER 2016-11-17 20:52 | Emergency (ER) | payer MEDICARE, MEDICAID ==
--- NOTE | 2016-11-17 21:19 | RADIOLOGY REPORT (SQ) ---
EXAM DESCRIPTION: SOFT TISSUE NECK COMPLETED DATE/TIME: 11/17/2016 9:09 pm REASON FOR STUDY: Swallowed Straight Pin COMPARISON: None. NUMBER OF VIEWS: Two views. TECHNIQUE: AP and lateral radiographic image of the soft tissues of the neck. LIMITATIONS: None. FINDINGS: EPIGLOTTIS: Normal. Contour normal. Aryepiglottic folds normal. PREVERTEBRAL SOFT TISSUES: Normal. No soft tissue swelling. SUBGLOTTIC AREA: Normal. No narrowing. RETROPHARYNGEAL SPACE: Normal. No soft tissue masses. BONY STRUCTURES: No significant findings. LUNG APICES: Normal. OTHER: No radiopaque foreign body. No other significant finding. IMPRESSION: NEGATIVE STUDY OF THE SOFT TISSUES OF THE NECK. TECHNICAL DOCUMENTATION: JOB ID: [id number] [employer]- All Rights Reserved
--- NOTE | 2016-11-17 21:57 | ER Document Report ---
ED Foreign Body - General Chief Complaint: Foreign Body Stated Complaint: SWALLOWED FOREIGN OBJECT Time Seen by Provider: 11/17/16 21:49 Notes: Patient is a 60-year-old female that comes emergency department for chief complaint of irritation in the left side of her throat and neck, she states that she fell asleep when she was picking her teeth with a straight pin, she states that she is worried she swallowed it because she cannot find the pain. She denies shortness of breath, chest pain, abdominal pain. She denies any other complaints. TRAVEL OUTSIDE OF THE [place] IN LAST 30 DAYS: No - Related Data Allergies/Adverse Reactions: aspirin [Aspirin] Adverse Reaction (Intermediate, Verified 11/17/16 20:56) N&V Past Medical History - General Information source: Patient - Social History Smoking Status: Never Smoker Frequency of alcohol use: None Drug Abuse: None Lives with: Family Family History: Reviewed & Not Pertinent - Past Medical History Cardiac Medical History: Reports: Hx Hypertension Pulmonary Medical History: Reports: Hx Bronchitis, Hx COPD, Hx Pneumonia - 2005 Neurological Medical History: Denies: Hx Cerebrovascular Accident, Hx Seizures Renal/ Medical History: Denies: Hx Peritoneal Dialysis Musculoskeltal Medical History: Reports Hx Arthritis - Joints Psychiatric Medical History: Reports: Hx Depression Past Surgical History: Reports: Hx Abdominal Surgery - gastric bypass 3 years ago, Hx Cardiac Catheterization - ablation, Hx Orthopedic Surgery - left knee/ shoulder - Immunizations Hx Diphtheria, Pertussis, Tetanus Vaccination: Yes Hx Pneumococcal Vaccination: 12/25/12 Review of Systems - Review of Systems Constitutional: No symptoms reported EENT: See HPI Cardiovascular: No symptoms reported Respiratory: No symptoms reported Gastrointestinal: See HPI Genitourinary: No symptoms reported Female Genitourinary: No symptoms reported Musculoskeletal: No symptoms reported Skin: No symptoms reported Hematologic/Lymphatic: No symptoms reported Neurological/Psychological: No symptoms reported Physical Exam - Vital signs Vitals: Temp Pulse Resp BP Pulse Ox 97.9 F 82 18 139/75 H 93 11/17/16 20:57 11/17/16 20:57 11/17/16 20:57 11/17/16 20:57 11/17/16 20:57 Interpretation: Normal - General General appearance: Appears well, Alert In distress: None - HEENT Head: Normocephalic, Atraumatic Eyes: Normal Conjunctiva: Normal Extraocular movements intact: Yes Eyelashes: Normal Pupils: PERRL Sinus: Normal Nasal: Normal Mouth/Lips: Normal Mucous membranes: Normal Pharynx: Normal, Other - no foreign body or bleeding noted, no other abnormality noted in oral/pharyngeal exam. No: Tonsillar hypertrophy, Uvular edema, Potential airway comprom. Neck: Other - There appears to be a small tender lymph node in the left submandibular location, no significant swelling or tenderness, no abnormal erythema, induration, or fluctuance. - Respiratory Respiratory status: No respiratory distress Chest status: Nontender Breath sounds: Normal. No: Productive cough, Rales, Rhonchi, Stridor, Wheezing Chest palpation: Normal - Cardiovascular Rhythm: Regular. No: Tachycardia Heart sounds: Normal auscultation, S1 appreciated, S2 appreciated Murmur: No - Abdominal Inspection: Normal Distension: No distension Bowel sounds: Normal Tenderness: Nontender Organomegaly: No organomegaly - Back Back: Normal, Nontender - Extremities General upper extremity: Normal inspection, Nontender, Normal color, Normal ROM , Normal temperature General lower extremity: Normal inspection, Nontender, Normal color, Normal ROM , Normal temperature, Normal weight bearing. No: Myesha's sign - Neurological Neuro grossly intact: Yes Cognition: Normal Orientation: AAOx4 Dawna Coma Scale Eye Opening: Spontaneous [place] Coma Scale Verbal: Oriented Dawna Coma Scale Motor: Obeys Commands Hart[place]le Coma Scale Total: 15 Speech: Normal Motor strength normal: LUE, RUE, LLE, RLE Sensory: Normal - Psychological Associated symptoms: Normal affect, Normal mood - Skin Skin Temperature: Warm Skin Moisture: Dry Skin Color: Normal Course - Re-evaluation Re-evalutation: Patient has a small lymph node on examination where she is reporting tenderness , she is still concerned that she swallowed a pen. Reviewed soft tissue neck x- ray with no abnormalities. Discussed with patient. Concerned that if she did swallow this could definitely be in the chest abdomen locations on x-ray, decision was made to perform these. Both performed, shows no abnormality. Patient is very relieved about this. States she is ready to leave. Discussed follow-up, discussed return precautions, patient states satisfaction and agreement. - Vital Signs Vital signs: Temp Pulse Resp BP Pulse Ox 97.9 F 67 18 135/69 H 100 11/17/16 20:57 11/17/16 23:32 11/17/16 23:32 11/17/16 23:32 11/17/16 23:32 Discharge - Discharge Clinical Impression: Throat discomfort Condition: Stable Disposition: HOME, SELF-CARE Additional Instructions: No evidence of foreign body on all x-ray images. Examination shows what appears to be a small lymph node, take, or ibuprofen for this, follow-up with primary care, if additional concerning symptoms develop such as difficulty swallowing, fever, shortness of breath, or any other symptoms occur please return to the emergency department. Referrals: DIEGO DASH MD [Primary Care Provider] - Follow up as needed
--- NOTE | 2016-11-17 22:38 | RADIOLOGY REPORT (SQ) ---
EXAM DESCRIPTION: CHEST PA/LAT COMPLETED DATE/TIME: 11/17/2016 10:26 pm REASON FOR STUDY: ? swallowed pin COMPARISON: 06/04/2016. EXAM PARAMETERS: NUMBER OF VIEWS: two views TECHNIQUE: Digital Frontal and Lateral radiographic views of the chest acquired. RADIATION DOSE: NA LIMITATIONS: none FINDINGS: LUNGS AND PLEURA: No opacities, masses or pneumothorax. No pleural effusion. MEDIASTINUM AND HILAR STRUCTURES: No masses or contour abnormalities. HEART AND VASCULAR STRUCTURES: Heart normal size. No evidence for failure. BONES: No acute findings. Previous kyphoplasty. HARDWARE: Clips in the upper abdomen. OTHER: No other significant finding. IMPRESSION: NO SIGNIFICANT RADIOGRAPHIC FINDING IN THE CHEST. TECHNICAL DOCUMENTATION: JOB ID: [id number] [employer]- All Rights Reserved
--- NOTE | 2016-11-17 22:39 | RADIOLOGY REPORT (SQ) ---
EXAM DESCRIPTION: KUB/ABDOMEN (SINGLE VIEW) COMPLETED DATE/TIME: 11/17/2016 10:26 pm REASON FOR STUDY: ? swallowed pin COMPARISON: None. NUMBER OF VIEWS: One view. TECHNIQUE: Supine radiographic image of the abdomen acquired. LIMITATIONS: None. FINDINGS: BOWEL GAS PATTERN: Normal bowel gas pattern. No dilated loops. CALCIFICATIONS: No suspicious calcifications. SOFT TISSUES: No gross mass or suggestion of organomegaly. HARDWARE: Clips in the upper abdomen. BONES: No acute fracture. No worrisome bone lesions. OTHER: No other significant finding. IMPRESSION: NO RADIOGRAPHIC EVIDENCE FOR ACUTE ABDOMINAL DISEASE. TECHNICAL DOCUMENTATION: JOB ID: [id number] [employer]- All Rights Reserved
[2016-11-17 23:33] VITALS: BP 135/69
== END 2016-11-17 23:25 | disposition home or self-care (01) ==
LOC: ER 20:52
DX: R09.89 Other specified symptoms and signs involving the circulatory and respiratory systems (principal); I10 Essential (primary) hypertension; J44.9 Chronic obstructive pulmonary disease, unspecified; Z98.84 Bariatric surgery status
CPT/HCPCS: 70360; 71020; 74000; 99283

== ENCOUNTER → 2017-03-01 | Outpatient (CLI) | payer MEDICARE, MEDICAID ==
--- NOTE | 2017-03-01 14:44 | WOMENS IMAGING REPORT ---
EXAM DESCRIPTION: 3D SCREENING MAMMO BILAT COMPLETED DATE/TIME: 03/01/2017 1:33 pm REASON FOR STUDY: ROUTINE SCREENING; Z12.31 Z12.31 ENCNTR SCREEN MAMMOGRAM FOR MALIGNANT NEOPLASM O F BEATA COMPARISON: Multiple since 2007 TECHNIQUE: Standard craniocaudal and mediolateral oblique views of each breast recorded using digita l acquisition and breast tomosynthesis. LIMITATIONS: None. FINDINGS: No masses, calcifications or architectural distortion. No areas of suspicion. Read with the assistance of CAD. .[facility] - R2 [employer] Version 1.3 .[facility] - R2 Cenova Version 1.3 .[facility] - R2 Cenova Version 2.4 .[facility] [place] - R2 Cenova Version 2.4 .[facility] [place] - R2 [employer] Version 9.2 IMPRESSION: NORMAL MAMMOGRAM. BIRADS 1. BREAST DENSITY: b. There are scattered areas of fibroglandular density. BIRAD: 1 NEGATIVE RECOMMENDATION: ROUTINE SCREENING Please continue yearly bilateral screening tomosynthesis in February 2018 COMMENT: The patient has been notified of the results by letter per SA requirements. Additional no tification policies are in place for contacting patient with suspicious or incomplete findings. Quality ID #[id number]: The [employer] recommends an annual screening mammogram for women aged 40 years or over. This facility utilizes a reminder system to ensure that all patients receive reminder letters, and/or direct phone calls for appointments. This includes reminders for routine scr eening mammograms, diagnostic mammograms, or other Breast Imaging Interventions when appropriate. Th is patient will be placed in the appropriate reminder system. The [employer] (ACR) has developed recommendations for screening MRI of the breast s in certain patient populations, to be used in conjunction with mammography. Breast MRI surveillanc e may be appropriate for women with more than 20% lifetime risk of developing breast cancer as deter mined by genetic testing, significant family history of the disease, or history of mantle radiation f or Hodgkins Disease. ACR Practice Guidelines 2008. DBT Technology DBT is a type of tomographic mammography. With conventional mammography, overlapping breast tissue ma y make lesions difficult to detect, even with good compression. DBT uses an x-ray tube that rotates a round the breast, taking images at different angles. These images are then combined to create thin sl ices of the breast that the radiologist can view as a 3D reconstruction. The [employer] unit can perform full-field digital mammograms (2D imaging); or DBT (3D imaging); or both, in a combination mode that quickly performs both the mammogram and the tomosynthesis scan while the breast is still compressed. PQRS 6045F: Fluoroscopic imaging is not utilized for breast tomosynthesis. TECHNICAL DOCUMENTATION: FINDING NUMBER: (1) ASSESSMENT: (1) JOB ID: [id number] [employer]- All Rights Reserved
== END ==
LOC: WI 13:07
PROVIDERS: ATTEND Internal Medicine
DX: Z12.31 Encounter for screening mammogram for malignant neoplasm of breast (principal)
CPT/HCPCS: 77063; G0202; 77067

== ENCOUNTER 2017-08-25 16:34 | Emergency (ER) | payer MEDICARE, MEDICAID ==
[2017-08-25] MEDS ORDERED: ASPIRIN 81 MG TABLET, CHEWABLE PO ONE (17:08)
--- NOTE | 2017-08-25 17:09 | ER Document Report ---
ED Medical Screen (RME) - General Chief Complaint: Nausea/Vomiting Stated Complaint: FLU SYMPTOMS Time Seen by Provider: 08/25/17 17:00 Notes: RME DISCLOSURE I have seen this patient as part of a Rapid Medical Evaluation and, if applicable, placed any initially appropriate orders. The patient will be seen and fully evaluated, including a full history and physical exam, by a provider ( in Main ED or Fast Track) when a room becomes available. 61-year-old female here with complaints of left-sided chest pain radiating up to the left neck and shoulder down the left arm with shortness of breath. Symptoms worse with exertion and sometimes worse with breathing. She has tried ibuprofen for the symptoms. Denies prior history of PE DVT or ACS. Has also been complaining of some generalized weakness and URI type symptoms. TRAVEL OUTSIDE OF THE [place] IN LAST 30 DAYS: No - Related Data Allergies/Adverse Reactions: aspirin [Aspirin] Adverse Reaction (Intermediate, Verified 08/25/17 16:40) N&V Past Medical History - Social History Chew tobacco use (# tins/day): No Frequency of alcohol use: Occasional Drug Abuse: None - Past Medical History Cardiac Medical History: Reports: Hx Hypertension Pulmonary Medical History: Reports: Hx Bronchitis, Hx COPD, Hx Pneumonia - 2005 Neurological Medical History: Denies: Hx Cerebrovascular Accident, Hx Seizures Renal/ Medical History: Denies: Hx Peritoneal Dialysis Musculoskeltal Medical History: Reports Hx Arthritis - Joints Psychiatric Medical History: Reports: Hx Depression Past Surgical History: Reports: Hx Abdominal Surgery - gastric bypass 3 years ago, Hx Cardiac Catheterization - ablation, Hx Orthopedic Surgery - left knee/ shoulder - Immunizations Hx Diphtheria, Pertussis, Tetanus Vaccination: Yes Physical Exam - Vital signs Vitals: Temp Pulse Resp BP Pulse Ox 98.0 F 89 18 121/75 99 08/25/17 16:49 08/25/17 16:49 08/25/17 16:49 08/25/17 16:49 08/25/17 16:49 Course - Vital Signs Vital signs: Temp Pulse Resp BP Pulse Ox 98.0 F 89 18 121/75 99 08/25/17 16:49 08/25/17 16:49 08/25/17 16:49 08/25/17 16:49 08/25/17 16:49
[2017-08-25 17:25] LABS: ABSOLUTE BASOPHILS # (AUTO) 0.1 10^3/uL (0.0-0.2); ABSOLUTE EOSINOPHILS # (AUTO) 0.1 10^3/uL (0.0-0.6); ABSOLUTE LYMPHOCYTES (AUTO) 2.2 10^3/uL (0.5-4.7); ABSOLUTE MONOCYTES (AUTO) 0.4 10^3/uL (0.1-1.4); ABSOLUTE NEUT (AUTO) 1.9 10^3/uL (1.7-8.2); BASOPHILS % (AUTO) 1.1 % (0-2); EOSINOPHILS % (AUTO) 2.6 % (0-6); HEMOGLOBIN 12.3 g/dL (12.0-15.5); LYMPHOCYTES % (AUTO) 47.3 % (13-45); MEAN CORPUSCULAR HEMOGLOBIN 31.7 pg (27.0-33.4); MEAN CORPUSCULAR HGB CONC 34.2 g/dL (32.0-36.0); MEAN CORPUSCULAR VOLUME 93 fl (80-97); MONOCYTES % (AUTO) 8.2 % (3-13); PLATELET COUNT 241 10^3/uL (150-450); RED BLOOD COUNT 3.88 10^6/uL (3.72-5.28); RED CELL DISTRIBUTION WIDTH 13.6 % (11.5-14.0); SEGMENTED NEUTROPHILS % (AUTO) 40.8 % (42-78); TOTAL CELLS COUNTED % (AUTO) 100 %; WHITE BLOOD COUNT 4.6 10^3/uL (4.0-10.5)
[2017-08-25 17:43] LABS: ANION GAP 6 (5-19); BLOOD UREA NITROGEN 27 mg/dL (7-20); CALCIUM 9.9 mg/dL (8.4-10.2); CARBON DIOXIDE 26 mmol/L (22-30); CHLORIDE 112 mmol/L (98-107); GLUCOSE 95 mg/dL (75-110); POTASSIUM 3.8 mmol/L (3.6-5.0); SODIUM 144.3 mmol/L (137-145)
--- NOTE | 2017-08-25 17:43 | RADIOLOGY REPORT (SQ) ---
EXAM DESCRIPTION: CHEST 2 VIEWS COMPLETED DATE/TIME: 08/25/2017 5:34 pm REASON FOR STUDY: CP SOB COMPARISON: 11/17/2016 EXAM PARAMETERS: NUMBER OF VIEWS: two views TECHNIQUE: Digital Frontal and Lateral radiographic views of the chest acquired. RADIATION DOSE: NA LIMITATIONS: none FINDINGS: LUNGS AND PLEURA: No opacities, masses or pneumothorax. No pleural effusion. MEDIASTINUM AND HILAR STRUCTURES: No masses or contour abnormalities. HEART AND VASCULAR STRUCTURES: Heart normal size. No evidence for failure. BONES: No acute findings. Kyphoplasty changes in the lower thoracic spine. HARDWARE: None in the chest. OTHER: No other significant finding. IMPRESSION: NO ACUTE RADIOGRAPHIC FINDING IN THE CHEST. TECHNICAL DOCUMENTATION: JOB ID: [id number] [employer]- All Rights Reserved Reading location - IP/workstation name: [email or web address]
--- NOTE | 2017-08-25 17:55 | ER Document Report ---
ED Respiratory Problem - General Chief Complaint: Nausea/Vomiting Stated Complaint: FLU SYMPTOMS Time Seen by Provider: 08/25/17 17:00 Notes: 61-year-old female presents to ED for complaint of cough congestion fever off and on for 3 weeks sneezing spitting up states yesterday she was vomiting some. She states she had chest pain with pain to the left arm neck and back for the last 2-3 days. She states she has a history of SVT with an ablation. She states she also has a history of bronchitis COPD and pneumonia. TRAVEL OUTSIDE OF THE [place] IN LAST 30 DAYS: No - HPI Patient complains to provider of: Chest pain, Cough, Other - Congestion sneezing runny nose Onset: Other - Upper respiratory infection symptoms have been for about 3 weeks with fever nausea vomiting spitting up from chest pain with pain to the left arm neck and back has been for 2-3 days Duration: Continuous Initiating Event: URI Quality of pain: Achy Severity: Moderate Pain Level: 4 Context: Smoker Short of Breath: Mild Cough: Nonproductive Sputum amount: None Associated symptoms: Chest pain/discomfort, Congestion, Cough, Fever, PND, Runny nose, Sinus pain/pressure, Sore Throat Similar symptoms previously: Yes Recently seen / treated by doctor: Yes - Related Data Allergies/Adverse Reactions: aspirin [Aspirin] Adverse Reaction (Intermediate, Verified 08/25/17 16:40) N&V Past Medical History - General Information source: Patient - Social History Smoking Status: Current Every Day Smoker Cigarette use (# per day): Yes Chew tobacco use (# tins/day): No Smoking Education Provided: Yes Frequency of alcohol use: Occasional Drug Abuse: None Lives with: Alone Family History: Arthritis, CVA, DM, Hypertension, Malignancy, Other - Brain tumor Patient has suicidal ideation: No Patient has homicidal ideation: No - Past Medical History Cardiac Medical History: Reports: Hx Hypertension Pulmonary Medical History: Reports: Hx Bronchitis, Hx COPD, Hx Pneumonia - 2005 EENT Medical History: Reports: Nose, Throat Neurological Medical History: Reports: None Endocrine Medical History: Reports: None Renal/ Medical History: Reports: None Malignancy Medical History: Reports: None GI Medical History: Reports: None Musculoskeltal Medical History: Reports Hx Arthritis - Joints Skin Medical History: Reports None Psychiatric Medical History: Reports: Hx Depression Traumatic Medical History: Reports: None Infectious Medical History: Reports: None Past Surgical History: Reports: Hx Abdominal Surgery - gastric bypass 3 years ago, Hx Cardiac Catheterization - ablation, Hx Orthopedic Surgery - left knee/ shoulder - Immunizations Hx Diphtheria, Pertussis, Tetanus Vaccination: Yes Hx Pneumococcal Vaccination: 12/25/12 Review of Systems - Review of Systems Constitutional: Chills, Fever, Recent illness EENT: Nose congestion, Nose discharge, Sinus pressure, Sinus discharge, Throat pain Cardiovascular: Chest pain Respiratory: Cough, Short of breath Gastrointestinal: No symptoms reported Genitourinary: No symptoms reported Female Genitourinary: No symptoms reported Musculoskeletal: Muscle pain, Muscle stiffness Skin: No symptoms reported Hematologic/Lymphatic: No symptoms reported Neurological/Psychological: No symptoms reported Physical Exam - Vital signs Vitals: Temp Pulse Resp BP Pulse Ox 98.0 F 89 18 121/75 99 08/25/17 16:49 08/25/17 16:49 08/25/17 16:49 08/25/17 16:49 08/25/17 16:49 Interpretation: Normal - General General appearance: Appears well, Alert - HEENT Head: Normocephalic, Atraumatic Eyes: Normal Pupils: PERRL Ears: Normal External canal: Normal Tympanic membrane: Normal Sinus: Normal Nasal: Purulent discharge, Swelling Mouth/Lips: Normal Mucous membranes: Normal Pharynx: Post nasal drainage Neck: Normal - Respiratory Respiratory status: No respiratory distress Chest status: Nontender Breath sounds: Normal Chest palpation: Normal - Cardiovascular Rhythm: Regular Heart sounds: Normal auscultation Murmur: No - Abdominal Inspection: Normal Distension: No distension Bowel sounds: Normal Tenderness: Nontender Organomegaly: No organomegaly - Back Back: Normal, Nontender - Extremities General upper extremity: Normal inspection, Nontender, Normal color, Normal ROM , Normal temperature General lower extremity: Normal inspection, Nontender, Normal color, Normal ROM , Normal temperature, Normal weight bearing. No: Myesha's sign - Neurological Neuro grossly intact: Yes Cognition: Normal Orientation: AAOx4 Dawna Coma Scale Eye Opening: Spontaneous Dawna Coma Scale Verbal: Oriented [place] Coma Scale Motor: Obeys Commands [place] Coma Scale Total: 15 Speech: Normal Motor strength normal: LUE, RUE, LLE, RLE Sensory: Normal - Psychological Associated symptoms: Normal affect, Normal mood - Skin Skin Temperature: Warm Skin Moisture: Dry Skin Color: Normal Course - Re-evaluation Re-evalutation: 08/25/17 18:35 After performing a Medical Screening Examination, I estimate there is LOW risk for ACUTE CORONARY SYNDROME, RESPIRATORY FAILURE, SEPSIS OR MENINGITIS, thus I consider the discharge disposition reasonable. She has had basic metabolic, CBC , troponin, and chest x-ray which are all no acute changes. She has no history of coronary artery disease. Her pain in her chest has been for 2-3 days. Her cold and cough symptoms have been for 3 weeks. I have reevaluated this patient multiple times and no significant life threatening changes are noted. The patient and I have discussed the diagnosis and risks, and we agree with discharging home with close follow-up. We also discussed returning to the Emergency Department immediately if new or worsening symptoms occur. We have discussed the symptoms which are most concerning (e.g., changing or worsening pain, trouble swallowing or breathing, neck stiffness, fever) that necessitate immediate return. - Vital Signs Vital signs: Temp Pulse Resp BP Pulse Ox 98.0 F 93 18 146/81 H 100 08/25/17 16:49 08/25/17 18:45 08/25/17 18:45 08/25/17 18:45 08/25/17 18:45 - Laboratory Result Diagrams: 08/25/17 17:15 08/25/17 17:15 Laboratory results interpreted by me: 08/25/17 08/25/17 17:15 17:15 Seg Neutrophils % 40.8 L Lymphocytes % 47.3 H Chloride 112 H BUN 27 H Est GFR (Non-Af Amer) 52 L - Diagnostic Test Radiology reviewed: Image reviewed, Reports reviewed Discharge - Discharge Clinical Impression: URI (upper respiratory infection) Qualifiers: URI type: unspecified URI Qualified Code(s): J06.9 - Acute upper respiratory infection, unspecified Chest pain Qualifiers: Chest pain type: unspecified Qualified Code(s): R07.9 - Chest pain, unspecified Condition: Stable Disposition: HOME, SELF-CARE Additional Instructions: CHEST PAIN OF UNCLEAR CAUSE: The exact cause of your chest pain isn't clear. Fortunately, there is no evidence of a dangerous medical condition. Further testing may be required to find the source of the pain. Most often, we find that this pain is coming from the chest wall -- the muscles or rib joints in the chest. But chest pain can come from the lung and lung lining, the esophagus, the heart valves or heart lining, and even the stomach or gallbladder. Rest. Eat lightly until the pain is gone. We may prescribe medicine for pain and inflammation. You should call the physician immediately if the pain radiates to the shoulder, jaw or arms; if you start to run a fever or develop a cough; or if you develop shortness of breath, or other new or alarming symptoms. UPPER RESPIRATORY ILLNESS: You have a viral infection of the respiratory passages -- a "cold." This common infection causes nasal congestion, drainage, and often sore throat and cough. It is highly contagious. The disease usually lasts about 10 to 14 days. There is no "cure" for the viral infection -- it must run its course. If there is a complication, such as bacterial infection in the nose, sinuses, middle ear, or bronchial tubes, antibiotics may be required. The antibiotics won't affect the virus. Drink plenty of fluids. A humidifier may help. An expectorant medication or decongestant may make you more comfortable. Use acetaminophen or ibuprofen for fever or aches. See the doctor if fever persists over two days, if there is any significant worsening of your symptoms, or if you simply fail to improve as expected. COUGH-SUPPRESSANT & EXPECTORANT MEDICATION: You are to use a cough medication as needed for relief of symptoms. This medicine is a combination of an expectorant (to make the mucous thinner and more easily "coughed up") and a cough suppressant (to reduce the frequency of coughing). The cough-suppressant medicine is related to narcotics. You may experience mild nausea and sleepiness. Some patients who are very sensitive to narcotics may have stomach pain from this medicine. Taking the medicine with food reduces these side effects. Do not drive or work with machinery until you know how this medicine affects you. The expectorant should have no side effects. Iodine-containing expectorants (such as organidin) should not be taken by persons with active thyroid disease unless approved by your doctor. Call the doctor if you develop shortness of breath, hives, rash, itching, lightheadedness, or severe nausea and vomiting. USE OF ACETAMINOPHEN (Tylenol): Acetaminophen may be taken for pain relief or fever control. It's much safer than aspirin, offering a wider range of "safe" dosages. It is safe during . Some brand names are Tylenol, Panadol, Datril, Anacin 3, Tempra, and Liquiprin. Acetaminophen can be repeated every four hours. The following are maximum recommended dosages: >89 pounds or adults 650 mg to 900 mg Acetaminophen can be repeated every four hours. Maximum dose not to exceed 4000 mg a day. SMOKING: If you smoke, you should stop smoking. The tar and chemicals in cigarette smoke are harmful. Smoking has been shown to cause: emphysema chronic bronchitis lung cancer mouth and throat cancer stomach and pancreas cancer premature aging defects In addition, smoking increases ear and lung infections in children of smokers. ASPIRIN: Aspirin has been shown to have a beneficial effect on blood circulation by reducing the clotting effect of platelets in the blood. These beneficial effects can be achieved by taking just a single baby (81 mg) aspirin a day. It is recommended that any person over the age of forty take a single baby aspirin every day for heart and brain circulation, unless you are allergic to aspirin or have some significant bleeding disorder. It is strongly recommended that people who have proven cardiac or blood circulation disturbances should take a baby aspirin every day. FOLLOW-UP CARE: If you have been referred to a physician for follow-up care, call the physician s office for an appointment as you were instructed or within the next two days. If you experience worsening or a significant change in your symptoms, notify the physician immediately or return to the Emergency Department at any time for re-evaluation. Referrals: IDEGO DASH MD [Primary Care Provider] - Follow up as needed
[2017-08-25 19:03] VITALS: BP 146/81
--- NOTE | 2017-08-25 20:57 | EKG REPORT ---
SEVERITY:- ABNORMAL ECG - SINUS RHYTHM LEFT VENTRICULAR HYPERTROPHY : Confirmed by: Gilma Elizondo 25-Aug-2017 20:56:37
== END 2017-08-25 18:50 | disposition home or self-care (01) ==
LOC: ER 16:34
DX: J06.9 Acute upper respiratory infection, unspecified (principal); R11.2 Nausea with vomiting, unspecified; R07.9 Chest pain, unspecified; F17.210 Nicotine dependence, cigarettes, uncomplicated; I10 Essential (primary) hypertension; Z88.6 Allergy status to analgesic agent; Z98.84 Bariatric surgery status
CPT/HCPCS: 36415; 71046; 80048; 84484; 85025; 93005; 93010; 99284

== ENCOUNTER → 2017-10-27 | Outpatient (CLI) | payer MEDICARE, MEDICAID ==
--- NOTE | 2017-10-27 18:10 | RADIOLOGY REPORT (SQ) ---
EXAM DESCRIPTION: HIP LEFT AP/LATERAL COMPLETED DATE/TIME: 10/27/2017 6:02 pm REASON FOR STUDY: M25.552 PAIN IN LEFT HIP M54.5 LOW BACK PAIN M25.552 PAIN IN LEFT HIP M54.5 LOW BACK PAIN COMPARISON: None. NUMBER OF VIEWS: Two views. TECHNIQUE: AP pelvis and additional frog-leg view of the left hip. LIMITATIONS: None. FINDINGS: MINERALIZATION: Normal. LEFT HIP: No fracture or dislocation. No worrisome bone lesions. RIGHT HIP: No fracture or dislocation. No worrisome bone lesions. PUBIS AND ISCHIUM: No fracture. PELVIS: No fracture. SACRUM: No fracture or dislocation. No worrisome bone lesions. LOWER LUMBAR SPINE: No fracture or dislocation. No worrisome bone lesions. No significant disc disea se. SOFT TISSUES: No findings. OTHER: No other significant finding. IMPRESSION: NEGATIVE STUDY OF THE LEFT HIP AND PELVIS. NO RADIOGRAPHIC EVIDENCE OF ACUTE INJURY. TECHNICAL DOCUMENTATION: JOB ID: [id number] [employer]- All Rights Reserved Reading location - IP/workstation name: [email or web address]
--- NOTE | 2017-10-27 18:13 | RADIOLOGY REPORT (SQ) ---
EXAM DESCRIPTION: L SPINE WHOLE COMPLETED DATE/TIME: 10/27/2017 6:02 pm REASON FOR STUDY: M25.552 M25.552 PAIN IN LEFT HIP M54.5 LOW BACK PAIN COMPARISON: 07/16/2015. NUMBER OF VIEWS: Five views including obliques. TECHNIQUE: AP, lateral, oblique, and sacral radiographic images acquired of the lumbar spine. LIMITATIONS: None. FINDINGS: MINERALIZATION: Osteopenia. SEGMENTATION: Transitional anatomy again noted with sacralization of the L5 level. ALIGNMENT: Stable alignment including grade 1 anterolisthesis of L4 on L5. VERTEBRAE: Post vertebroplasty change again noted at the T12 level without further loss of height. V ertebrae heights are otherwise maintained without acute fracture or suspicious osseous lesion. DISCS: Stable degree of multilevel degenerative disc disease most notably involving the visualized lo wer thoracic spine in the L4-L5 level. POSTERIOR ELEMENTS: Stable degree of facet arthropathy. Pedicles and facets are intact. No pars def ect or posterior arch defects. HARDWARE: None in the spine. PARASPINAL SOFT TISSUES: Vascular calcifications. Surgical clips. PELVIS: Intact as visualized. No fractures or worrisome bone lesions. SI joints intact. OTHER: No other significant finding. IMPRESSION: No acute osseous abnormality. No significant change from prior study. TECHNICAL DOCUMENTATION: JOB ID: [id number] [employer]- All Rights Reserved Reading location - IP/workstation name: [email or web address]
== END ==
LOC: RAD 17:36
PROVIDERS: ATTEND Internal Medicine
DX: M25.552 Pain in left hip (principal); M54.5 Low back pain
CPT/HCPCS: 72110